=== PATIENT | male | born 1965 | race Caucasian/White ===

== ENCOUNTER 2024-12-05 12:00 | Outpatient (AMB) | payer OTHER, SELFPAY ==
--- NOTE | 2024-12-05 11:56 | A.OFFVIS_ITS ---
Intake Visit Reasons: Low Testosterone Intake Note: New Patient is present for low testosterone Urology Rx:none Blood Thinners: none labs done [facility] 10/2024 Operations Representative Required: No Accompanied by: Self / Same As Patient Allergies No Known Allergies Allergy (Verified 12/05/24 11:55) HPI Comments Details: Kapil is a pleasant male. He is a patient of Dr. Egan . He is seen for the following urologic conditions - erectile dysfunction Erectile Dysfunction He presents today for - initial evaluation Current treatment includes - none At the time of initial evaluation he experiences - variability of achieving and maintaining rigidity - is able to still achieve penetration Symptoms have been present for/since - progressive over last 6-12 months Nocturnal erections do occur Associated Medical Conditions include - mild dyslipidemia Physical Performance Status is able to walk 200 yd and can ascend 2 flights of stairs easily without breathlessness Atherosclerosis Cardiovascular Disease Risk - low Investigations include testosterone - 11/20 501 Therapeutic plan includes - discussion regarding optimizing erectile function - Stressed need for adequate sleep, minimal alcohol, reduced stress, adequate Trial low-dose daily tadalafil three-month Review of Systems Const Denies chills and Denies fever(s) Card Reports no additional complaints and Denies syncope Resp Denies cough GI Denies abdominal pain and Denies heartburn Reports as per HPI and Denies change in libido Neuro Denies syncope Psych Denies change in libido Endo Denies change in libido Physical Exam Const General: cooperative, healthy appearing, comfortable and no acute distress Orientation/consciousness: patient oriented x3 HEENT Face and sinus: Yes normal facial exam Mouth: moist mucous membranes Neck Neck: Yes normal visual inspection, Yes full ROM and Yes trachea midline Chest Chest palpation & inspection: normal inspection of the chest Resp Effort & Inspection: normal respiratory effort, able to speak in complete sentences and no respiratory distress GI Inspection: Yes normal to inspection Back/Spine/Pelvis Cervical Spine: normal cervical lordosis Thoracic/Lumbar Spine: thoracic and lumbar spine normal to inspection Skin General skin exam: no rashes or lesions noted Neuro General: patient oriented x3, gait normal, tone normal and moves all extremities Extrem General: Yes normal to inspection and Yes capillary refill normal Telehealth Telehealth Telehealth Platform: [facility] Location of provider rendering services: practice address Location of patient: address on file Patient Identification confirmed using: Name, : Yes Telehealth method: video Patient verbally consented to treatment: Yes Patient verbally consented to billing insurance company: Yes Patient informed of any privacy concerns related to visit: Yes Minutes spent on Phone/Video with Pt.: 15 Assessment & Plan Assessment & Plan (1) Erectile dysfunction: Code(s): N52.9 - Male erectile dysfunction, unspecified Category: Medical Plan Three-month follow-up tele Medications: New tadalafil [id number] [facility] [id number] Member [id number] 5 mg PO DAILY 90 tabs 0RF sexual activity 90 days N52.9 - Male erectile dysfunction, unspecified Patient Instructions: This note is constructed using voice recognition software. While every effort has been made to ensure accuracy loan review manager errors may have been included. Imaging studies, laboratory and physical exam results were discussed and reviewed in detail. No major barriers to patient understanding were identified. An opportunity to ask questions regarding the treatment plan was provided. All questions were answered. The patient expressed understanding and agreement with the above treatment plan. The patient is aware they should contact our office by phone for worsening of their current condition or the appearance of new urologic symptoms. Compliance is encouraged with any medications and followup testing that is ordered. It is a privilege to participate in the urologic care of your patient. If you have any questions or concerns regarding treatment for the above conditions, or other urologic issues, please do not hesitate to contact me. The office telephone contact is [phone]. Sincerely, Dr Humberto Rodriguez MD, [facility] - Urology Compassionate Specialist Care for the Genitourinary System Coding Level of Care Code Tele New Pt Level 4 (62048) Diagnoses Erectile dysfunction N52.9
--- OUTSIDE RECORDS SUMMARY | 2024-12-05 12:27 | XMS_ITS | Data Portability ---
Author Organization [place] - [facility] - Central Address [address] [place] [address] Care Team Providers Care Book Critic Name Role Phone MAN UP Primary Care Provider Assessment No assessment recorded. Plan of Treatment Reminders Order Date Submit Date Provider Last Modified By Organization Details Last Modified Time Details Appointments Lab Only 2025 09:00A M [facility] Not available Not available Not available Annual Exam 15 2025 08:30A M Man Up MD Not available Not available Not available Lab None recorded . Referral None recorded . Procedures None recorded . Surgeries None recorded . Imaging None recorded . Medication Orders None recorded . Patient TargetsNo targets recorded. Patient InstructionsNo instructions recorded. Reason for Referral None Reported. Problems Name Problem SNOMED Code Status Onset Date Resolution Date Notes Provider Name and Address Organization Details Recorded Time Hyperlipidemia 21677520 Active 2024 [facility] Up [facility] [address] [facility], [place], [address] [place] [address] [facility] 5 11:20:56 Problem Notes None recorded. Medical Equipment None Reported. Allergies No known drug allergies Medications Name Sig Start Date Stop Date Status Note LastModified by Organization Details LastModified Time atorvastatin 10 mg tablet TAKE 1 TABLET BY MOUTH EVERY DAY active Not Available Not Available No t Available Vitals Date Recorded Body weight Body mass index (BMI) Body height Respiratory rate Body temperature Oxygen saturation Oxygen saturation in Arterial blood by Pulse oximetry Heart rate Systolic And Diastolic Provider Name and Address Organization Details Last Updated DateTime 5 96107.5 4 g 27.4 kg/m2 180.34 cm 14 /min 97.5 [degF] 99 % 99 % 68 /min 110/68 mm[Hg] Olesya Allen [facility] 10:57:05 Social History Question Answer Notes LastModified by Organizat ion Details LastModified Time Tobacco Smoking Status Never Smoker Olesya Allen [place] - [facility] 11/18/2024 10:59:23 Do You Have An Advance Directive? Yes Information not available 11/18/2024 Are You Blind Or Do You Have Difficulty Seeing? No Information not available 11/18/2024 Are You A Caregiver? No Information not available 11/18/2024 What Type Of Gas Specialist Do You Use? None Information not available 11/18/2024 Are You Deaf Or Do You Have Serious Difficulty Hearing? No Information not available 11/18/2024 What Type Of Diet Are You Following? REGULAR Information not available 11/18/2024 Do You Have A Directive To Physicians? No Information not available 11/18/2024 What Is The Highest Grade Or Level Of School You Have Completed Or The Highest Degree You Have Received? DH10820-4 Information not available 11/18/2024 Do You Have A Family History Of Substance Abuse (i.e. Alcohol, Illegal Drugs, Prescription Drugs)? No Information not available 11/18/2024 Have You Been Diagnosed With Any Of The Following Psychological Diseases? No Current Psychological Diseases Diagnosed Information not available 11/18/2024 Do You Have A Medical Power Of Jack Setter? No Information not available 11/18/2024 How Many Children Do You Have? 2 Information not available 11/18/2024 Do You Have Any Pets? No Information not available 11/18/2024 Do You Use Protection During Sex? No Information not available 11/18/2024 Do You Use Protection Against STDs? No Information not available 11/18/2024 Do You Use Your Seat Belt Or Car Seat Routinely? Yes Information not available 11/18/2024 Are You Sexually Active? Yes Information not available 11/18/2024 Do You Have Smoke And Carbon Monoxide Detectors In Your Home? Yes Information not available 11/18/2024 Are You Passively Exposed To Smoke? No Information no t available 11/18/2024 Are There Any Smokers In Your House? No Information not available 11/18/2024 Has Tobacco Cessation Counseling Been Provided? No Information not available 11/18/2024 Have You Recently Traveled Abroad? No Information not available 11/18/2024 Do You Have Any Dietary Restrictions? No Information not available 11/18/2024 Sex: Unknown Functional Status Question Answer Note LastModified by [employer] ion Details LastModified Time Do you use any illicit or recreational drugs? No Information not available 11/18/2024 Do you or have you ever used any other forms of tobacco or nicotine? No Information not available 11/18/2024 What is your level of alcohol consumption? None Information not available 11/18/2024 Are you currently employed? Yes Information not available 11/18/2024 Are you able to care for yourself? Yes Information not available 11/18/2024 What is your exercise level? None Information not available 11/18/2024 Mental Status None recorded. Family History Nothing Reported. Medical History No medical history recorded. Immunizations Vaccine Type Date Status Note Provider Nam e and Address Organization Details Recorded Time Influenza, split virus, quadrivalent, PF 03/13/2018 completed Not Available [facility] 5 10:38:52 Influenza, split virus, quadrivalent, PF 03/06/2019 completed Not Available [facility] 5 10:38:52 Influenza, MDCK, quadrivalent, PF 03/04/2020 completed Not Available [facility] 5 10:38:52 COVID-19, mRNA, LNP-S, PF, 30 mcg/0.3 mL dose 05/27/2020 completed Not Available [facility] 5 10:38:52 COVID-19, mRNA, LNP-S, PF, 30 mcg/0.3 mL dose 06/18/2020 completed Not Available [facility] 5 10:38:52 Tdap 10/13/2020 completed Not Available [facility] 11/18/2024 10:38:52 COVID-19, mRNA, LNP-S, PF, 30 mcg/0.3 mL dose 03/03/2021 completed Not Available [facility] 5 10:38:52 Influenza, split virus, quadrivalent, PF 03/20/2021 completed Not Available [facility] 5 10:38:52 COVID-19, mRNA, LNP-S, PF, 30 mcg/0.3 mL dose, ngoc-sucrose 11/03/2021 completed Not Available [facility] 025 10:38:52 Past Encounters Encounter ID Performer Location Encounter Start Date Encounter Closed Date Diagnosis/Indication Diagnosis SNOMED-CT Code Diagnosis ICD10 Code Diagnosis Note [id number] Man Up MD [facility] [address] [facility] [place] [address] 11/18/2024 10:37:14 11/18/2024 11:40:05 Adult health examination 035123005 Z00.01 Healthy adult male in no acute distress. Due for recommende d vaccines: will give Capvaxive and first Shingrix today. Due for recommende d cancer screening: will order PSA. Negative Depression screen. Negative screening for abuse. Negative alcohol screening. Has EOLC planning in place. Has the following additional concerns today: see below. Hyperlipidemia 94602290 E78.49 Stable, improving per pt.'s report. Will check fasting lipid panel in the next week along w/ other routine labs. Health Concerns Section Related Observation LastModified by Organization Detai ls LastModified Time None Recorded Concern Status LastModified by Organization Details LastModified Time None Recorded Advance Directives Directive Y: Payers Insurance Date Sequence Insurance Name Policy Number Policy Carmona Covered Member ID Carmona Member ID Guarantor Name 11/18/2024 1 [employer] Kapil Poon [id number] Kapil Poon Notes Date Note Type Note Provider Name and Address Organization Details Recorded Time 11/18/2024 text/html Hyperlipidemia: New pt. here for management of high cholesterol. Was Dx'd a few years ago. Currently taking Atorvastatin 10 mg, but only intermittently. Denies any issues w/ side effects from statin. Pt. reports good diet and frequent exercise. Patient here for Adult Preventive visit. Recommended screenings include: Cancer: Colon cancer screening-Colonosco py is Up to dateBreast cancer screening- Mammogram is N/AOsteoporosis screening- DEXA is N/ACervical cancer screening- PAP smear is N/AProstate cancer screening- PSA is Due nowLung cancer screening- Low-dose Chest CT is N/A Vaccine status: Influenza- Up to dateCOVID-Up to dateTetanus-Up to datePneumonia-Due nowShingles-Due nowRSV-N/AHepatitis B- N/A Other: Depression screening- NegativeAbuse screening-NegativeS moking cessation- Patient is not a smokerAlcohol abuse-NegativeEnd of life care planning-In place. Man Up MD [address],[facility], [place], [address], [facility] 11/18/2024 13:17:41
== END 2024-12-05 16:11 | disposition home or self-care (01) ==
LOC: HO.HUSH 12:00
PROVIDERS: Visit Provider Urology
DX: N52.9 Male erectile dysfunction, unspecified (principal)
CPT/HCPCS: 99204

== ENCOUNTER 2025-03-11 11:23 | Outpatient (AMB) | payer OTHER, SELFPAY ==
--- NOTE | 2025-03-11 11:23 | MHC.OFFVIS ---
Intake Visit Reasons: 3m follow up Intake Note: patient presents today for: telehealth 3mo follow up urology medications: tadalafil blood thinners: none Toby Maker Required: No Accompanied by: Self / Same As Patient Allergies No Known Allergies Allergy (Verified 03/11/25 11:24) HPI Comments Details: Kapil is a pleasant male. He is a patient of Dr. Egan . He is seen for the following urologic conditions - erectile dysfunction Telemedicine Evaluation 15 min Consultation Health Data [facility] Ju Video Success with medications Will cut back to Monday, Monday, Monday Erectile Dysfunction He presents today for - further evaluation Current treatment includes - daily 5 mg tadalafil At the time of initial evaluation he experiences - variability of achieving and maintaining rigidity - is able to still achieve penetration Symptoms have been present for/since - progressive over last 6-12 months Nocturnal erections do occur Associated Medical Conditions include - mild dyslipidemia Physical Performance Status is able to walk 200 yd and can ascend 2 flights of stairs easily without breathlessness Atherosclerosis Cardiovascular Disease Risk - low Investigations include testosterone - 11/20 501 Therapeutic plan includes - discussion regarding optimizing erectile function - Stressed need for adequate sleep, minimal alcohol, reduced stress, adequate Trial low-dose daily tadalafil three-month Review of Systems Const All systems reviewed & are unremarkable except as noted in HPI and below Reports no additional complaints Resp Reports no additional complaints GI Reports no additional complaints Reports as per HPI Musc Reports no additional complaints Physical Exam Telemedicine evaluation Appropriate responses Regular breathing rate and rhythm HEENT Head: Yes normal to inspection Ears: hearing grossly normal bilaterally Eyes General: appearance normal, both eyes and all related structures Neck Neck: Yes normal visual inspection Chest Chest palpation & inspection: normal inspection of the chest Resp Effort & Inspection: normal respiratory effort and able to speak in complete sentences Telehealth Telehealth Telehealth Platform: [facility] Location of provider rendering services: practice address Location of patient: address on file Patient Identification confirmed using: Name, : Yes Telehealth method: video Patient verbally consented to treatment: Yes Patient verbally consented to billing insurance company: Yes Patient informed of any privacy concerns related to visit: Yes Assessment & Plan Assessment & Plan (1) Erectile dysfunction: Code(s): N52.9 - Male erectile dysfunction, unspecified Category: Medical Plan Six-month follow-up Patient Instructions: This note is constructed using voice recognition software. While every effort has been made to ensure accuracy manager music errors may have been included. Imaging studies, laboratory and physical exam results were discussed and reviewed in detail. No major barriers to patient understanding were identified. An opportunity to ask questions regarding the treatment plan was provided. All questions were answered. The patient expressed understanding and agreement with the above treatment plan. The patient is aware they should contact our office by phone for worsening of their current condition or the appearance of new urologic symptoms. Compliance is encouraged with any medications and followup testing that is ordered. It is a privilege to participate in the urologic care of your patient. If you have any questions or concerns regarding treatment for the above conditions, or other urologic issues, please do not hesitate to contact me. The office telephone contact is [phone]. Sincerely, Dr Humberto Rodriguez MD, [facility] - Urology Compassionate Specialist Care for the Genitourinary System Coding Level of Care Code Tele Est Pt Level 3 (31592) Complex EM visit Add On G2211 Diagnoses Erectile dysfunction N52.9
--- OUTSIDE RECORDS SUMMARY | 2025-03-11 13:49 | XMS_ITS | Clinical Summary ---
Author Organization [facility] Address [address] [place] [address] Care Team Providers Care Manager Cash Name Role Phone Eddy Pritchett MD, Carlos Aldrich Primary Care Provider U navailable Social History Tobacco Use Types Packs/Day Years Used Date Smoking Tobacco: Never Assessed Sex and Gender Information Value Date Recorded Sex Assigned at Not on file Legal Sex Male 7:19 PM EDT Gender Identity Not on file Sexual Orientation Not on file Last Filed Vital Signs Vital Sign Reading Time Taken Comments Blood Pressure 133/85 01/31/2023 3:16 PM EDT Pulse 82 01/31/2023 3:16 PM EDT Temperature - - Respiratory Rate 18 01/31/2023 3:16 PM EDT Oxygen Saturation - - Inhaled Oxygen Concentration - - Weight 88.1 kg (194 lb 3.6 oz) 01/31/2023 3:16 P M EDT Height 180 cm (5' 10.87 ) 01/31/2023 3:16 PM EDT Body Mass Index 27.19 01/31/2023 3:16 PM EDT Plan of Treatment Health Maintenance Due Date Last Done Comments CT Colonography 1964 Colonoscopy 1964 Colorectal Screening 1964 FIT-DNA 1964 FIT 1964 FOBT 1964 HIV SCREENING 1965 HIV Screening Every 1 Year 1964 HIV Screening Once 1964 Hepatitis C Screening 1964 Sigmoidoscopy 1964 COVID-19 Vaccine (1 of 4) 1976 DTAP/TDAP/TD (1 - Tdap) 08/09/1983 Shingrix (1 of 2) 2014 Influenza vaccine (#1) 2024 HEPATITIS B VACCINES Aged Out No long er eligible based on patient's age to complete this topic Meningococcal B Aged Out No longer el igible based on patient's age to complete this topic Pneumococcal Vaccine: 0 to 64 Years Aged Out No longer eligible based on patient's age to complete this topic Care Teams Manager Cash Relationship Specialty Start Date End Date Carlos Kam Jr., MD PCP - General
== END 2025-03-11 11:50 | disposition home or self-care (01) ==
LOC: HO.HUSH 11:23
PROVIDERS: Visit Provider Urology
DX: N52.9 Male erectile dysfunction, unspecified (principal)
CPT/HCPCS: 99213